=== PATIENT | female | born 1970 | race Caucasian/White ===

== ENCOUNTER 2017-07-27 05:51 | Day surgery (SDC) | payer OTHER ==
[2017-07-27] MEDS ORDERED: LIDOCAINE 1% 2 ML INJ ID PRN (06:17)
[2017-07-27] MEDS ORDERED: LR 1,000 ML IV ONE (06:17)
[2017-07-27] MEDS ORDERED: MIDAZOLAM 2 MG/2 ML VIAL IVP ONE (06:56)
--- NOTE | 2017-07-27 06:57 | PDANEPAE ---
ANE History of Present Illness presents for nipple reconstruction ANE Past Medical History - Cardiovascular History Hx Hypertension: No Hx Arrhythmias: No Hx Chest Pain: No Hx Coronary Artery / Peripheral Vascular Disease: No Hx CHF / Valvular Disease: No Hx Palpitations: No Cardiovascular History Comment: denies chest pain,palp, family hx- mother heart murmur,age 30 - Pulmonary History Hx COPD: No Hx Asthma/Reactive Airway Disease: No Hx Recent Upper Respiratory Infection: No Hx Oxygen in Use at Home: No Hx Sleep Apnea: No Sleep Apnea Screening Result - Last Documented: Negative Pulmonary History Comment: hx bronchitis as a child - Neurologic History Hx Cerebrovascular Accident: No Hx Seizures: No Hx Dementia: No - Endocrine History Hx Diabetes: No Obesity: no - Renal History Hx Renal Disorders: No - Liver History Hx Hepatic Disorders: No - Neurological & Psychiatric Hx Hx Neurological and Psychiatric Disorders: No - Cancer History Hx Cancer: Yes Cancer History Comment: r breast ca- current - Congenital Disorder History Hx Congenital Disorders: No - GI History GERD: no Hx Gastrointestinal Disorders: No - Other Health History Other Health History: none - Chronic Pain History Chronic Pain: No - Surgical History Prior Surgeries: 2013 DONA MASTECTOMY. 2014 IMPLANTS BREAST ANE Review of Systems Review of systems is: negative Review of Systems: - Exercise capacity METS (RN): 4 METS ANE Patient History - Allergies Allergies/Adverse Reactions: iv dye Allergy (Uncoded 07/27/17 06:43) Congestion - Home Medications Home medications: home medication list seen and reviewed Home Medications: Advil 07/19/17 [Last Taken 07/20/17] Herbals/Supplements -Info Only 07/19/17 [Last Taken 07/23/17] - NPO status NPO Since - Liquids (Date): 07/26/17 NPO Since - Liquids (Time): 21:00 NPO Since - Solids (Date): 07/26/17 NPO Since - Solids (Time): 18:30 - Anes Hx Anes Hx: no prior problems - Smoking Hx Smoking Status: Never smoked - Family Anes Hx Family Hx Anesthesia Complications: NEG ANE Labs/Vital Signs - Vital Signs Blood Pressure: 146/87 Heart Rate: 76 Respiratory Rate: 16 O2 Sat (%): 98 Height: 162.56 cm Weight: 68.039 kg ANE Physical Exam - Airway Neck exam: FROM Mallampati Score: Class 2 Mouth exam: small mouth opening - Pulmonary Pulmonary: no respiratory distress - Cardiovascular Cardiovascular: regular rate and rhythym - ASA Status ASA Status: II ANE Anesthesia Plan Anesthesia Plan: GA w LMA
[2017-07-27] MEDS ORDERED: BACITRACIN ZINC 14.2 GM OINTTUBE TP ONE (07:02)
[2017-07-27] MEDS ORDERED: ONDANSETRON 4 MG/2 ML VIAL ONE (07:03)
[2017-07-27] MEDS ORDERED: LIDO/EPI 1% **for epidural** 30 ML SDV ONE (07:03)
[2017-07-27] MEDS ORDERED: PROPOFOL 200 MG/20 ML VIAL ONE (07:03)
[2017-07-27] MEDS ORDERED: GENTAMICIN SULFATE 80 MG/2 ML VIAL ONE (07:03)
[2017-07-27] MEDS ORDERED: DEXAMETHASONE 4 MG/ML VIAL ONE (07:03)
[2017-07-27] MEDS ORDERED: BUPIVACAINE 0.25% 30 ML SDV ONE (07:03)
[2017-07-27] MEDS ORDERED: fentaNYL 100 MCG/2 ML INJ ONE ×3 (07:03→09:36)
[2017-07-27] MEDS ORDERED: LIDOCAINE 2% 5 ML SDV ONE (07:03)
[2017-07-27] MEDS ORDERED: ceFAZolin 1 GM/5 ML SYR ONE (07:05)
[2017-07-27] MEDS ORDERED: HEPARIN 10,000 UNIT/10 ML MDV ONE (07:10)
--- NOTE | 2017-07-27 07:14 | PDGENHP ---
History & Physical Chief Complaint: absent breast after mastectomy History of Present Illness: 46 year old female for final stage of breast reconstruction following bilateral mastectomy Pertinent Past, Social, Family History: non smoker Relevant Physical Exam: absent bilateral breast with implants in place. no masses or LAD Cardiorespiratory Assessment: Lung olivia clear. Reg heart rate
[2017-07-27] MEDS ORDERED: ceFAZolin 2 GM/SWFI 2 GM/20 ML SYR IVP ONE (07:16)
[2017-07-27] MEDS ORDERED: LIDOCAINE 1% 300 MG/30 ML SDV ONE ×2 (08:13→08:14)
[2017-07-27] MEDS ORDERED: NALOXONE HCL 0.4 MG/ML INJ IVP PRN (08:24)
[2017-07-27] MEDS ORDERED: OXYCODONE/APAP 5/325 TAB PO PRN (08:24)
[2017-07-27] MEDS ORDERED: PROMETHAZINE HCL 25 MG/ML INJ IVP PRN (08:24)
[2017-07-27] MEDS ORDERED: fentaNYL 100 MCG/2 ML INJ IVP PRN (08:24)
[2017-07-27] MEDS ORDERED: HYDROmorphONE/DILAUDID 1 MG/ML INJ IVP PRN (08:24)
[2017-07-27] MEDS ORDERED: ACETAMINOPHEN 500 MG TAB PO PRN (08:24)
[2017-07-27] MEDS ORDERED: LR 500 ML IV PRN (08:24)
[2017-07-27] MEDS ORDERED: METOCLOPRAMIDE 10 MG/2 ML VIAL IVP PRN (08:24)
[2017-07-27] MEDS ORDERED: ONDANSETRON 4 MG/2 ML VIAL IVP PRN (08:24)
[2017-07-27] MEDS ORDERED: ALBUTEROL 3 ML DEYVIAL IH PRN (08:24)
[2017-07-27] MEDS ORDERED: KETOROLAC 30 MG/1 ML SDV ONE (08:40)
--- NOTE | 2017-07-27 09:01 | POSTANESTH ---
Post Anesthetic Evaluation Cardiovascular Status: Normal, Stable Respiratory Status: Normal, Stable Level of Consciousness/Mental Status: Can Participate in Eval Pain Control: Adequate, Prn Tx Ordered Nausea/Vomiting Control: Adequate, Prn Tx Ordered Complications Possibly Related to Anesthesia: None Noted
--- NOTE | 2017-07-27 09:15 | GOP ---
[f rep st] OPERATIVE REPORT DATE OF OPERATION: 07/27/2017 SURGEON: Yael Darby Jr., MD DEAD MAIL CHECKER: Steven Demarco MAILHOUSE OPERATOR by surgeon request (skilled title assistant was necessary due to the technical complexity of the case and desire to minimize patient anesthesia time). ANESTHESIA: Patient had general inhalational anesthetic. 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 PROCEDURE PERFORMED: Third-stage breast reconstruction as follows: 1. Bilateral nipple-areolar complex reconstruction. 2. Bilateral breast reconstruction with autologous fat grafting. FINDINGS: ESTIMATED BLOOD LOSS: 5 cc. Autologous fat grafting: Right breast, 50 cc purified fat. Left breast 40 cc purified fat. No comp lications. INDICATIONS: The patient is a 46-year-old female, who came in today to complete the final stage of h er breast reconstruction following a bilateral mastectomy. She was taken to the operating room for t he above procedures. DESCRIPTION OF PROCEDURE: After the risks and benefits of the procedures were explained to the patie nt highlighting bleeding, infection, partial or complete nipple necrosis, contour irregularities from grafting or donor site, asymmetry, poor cosmetic outcome, and need for additional procedures, formal operative consent was obtained. She was taken to the operating room. After adequate inhalational g eneral anesthesia had been provided, her premarked [place] C to V nipple reconstruction flaps were i njected with lidocaine containing adrenaline. She was prepped and draped in normal sterile fashion. Procedure began by incising the Samuel flaps based on a superior pedicle. The flaps were then hemant vated without penetrating the underlying breast capsule. The distal wings of the flaps were trimmed, and the flap was elevated and rotated to form the nipple papule. The papule was then inset using 3- 0 Vicryl, 4-0 Monocryl, and 5-0 nylon suture. Excellent projection was achieved with good symmetry b ilaterally. With the patient in a semi-seated position, areas of contour irregularities and hollowne ss in the upper and central portion of the breasts were remarked. Fat was harvested from the anterio r abdomen above the level of the umbilicus after tumescent solution had been infiltrated using a supe r-wet technique. The fat was harvested using Nikki cannulas and placed into a Pure Graft 250 cc fat lavage system. It was rinsed multiple times with warm lactated Ringer containing heparin until free of blood and oils. It was then loaded into 10 cc finger-control syringes and, through 2 mm access s ites, was layered into the areas of contour depression using a micro-droplet crosshatching technique. Approximately 50 cc of purified fat was used on the patient's right side and 40 on the left side. The donor grafting sites were closed using 5-0 nylon. She had bacitracin and Band-Aids over the dono r and grafting sites, Topifoam over the abdomen with a binder. She had protective nipple dressings p laced. She was extubated in the operating room, taken to recovery room awake in stable condition. /[id number]/MODL
[2017-07-27 09:48] VITALS: TEMP 97.5
[2017-07-27 10:58] VITALS: BP 118/62; PULSE 82; RESP 17; O2SAT 95
== END 2017-07-27 11:35 | disposition home or self-care (01) ==
LOC: FSGY 05:51
PROVIDERS: ATTEND Specialist
DX: Z90.13 Acquired absence of bilateral breasts and nipples (principal)
CPT/HCPCS: J0171; J0690; J1100; J1644; J1885; J2250; J2405; J2704; J3010